=== PATIENT | male | born 1990 | race Caucasian/White ===

== ENCOUNTER 2023-09-30 10:41 | Outpatient (CLI) | payer OTHER ==
--- NOTE | 2023-09-30 11:35 | XRAY Report ---
PROCEDURE: Elbow 1-2V LT INDICATIONS: BURSITIS,LT ELBOW TECHNIQUE: 3 views of the elbow were acquired. COMPARISON: None. FINDINGS: Bones: No acute fractures or dislocations. Well-corticated fragment adjacent to lateral aspect of r adial head suggestive of remote avulsion injury. No suspicious bony lesions. Soft tissues: Dorsal elbow soft tissue swelling is seen. No effusion. No suspicious soft tissue calc ifications or masses. IMPRESSION: No acute elbow fracture or dislocation. No significant joint effusion. Suggestion of old avulsion inj ury involving lateral elbow with well-corticated fragment. Dorsal elbow soft tissue swelling, olecran on bursitis cannot be excluded. No bony erosive changes. Reviewed by: Renzo Coronel MD on 09/30/2023 11:34 AM PDT Approved by: Renzo Coronel MD on 09/30/2023 11:34 AM PDT Station ID: [id number]
== END 2023-09-30 10:42 | disposition home or self-care (01) ==
LOC: DI 10:41
PROVIDERS: ATTEND Family Medicine
DX: M70.32 Other bursitis of elbow, left elbow (principal)